=== PATIENT | female | born 1990 | race Caucasian/White ===

== ENCOUNTER 2021-01-09 06:06 | Day surgery (SDC) | payer OTHER, SELFPAY ==
[2021-01-01 09:31] LABS: BASOPHILS % (AUTO) 0.7 % (0.0-2.0); EOSINOPHILS # (AUTO) 0.2 K/uL (0-0.4); EOSINOPHILS % (AUTO) 2.9 % (0.0-4.0); HEMATOCRIT 31.7 % (36-48); HEMOGLOBIN 9.8 g/dL (12.0-16.0); LYMPHOCYTES # (AUTO) 1.7 K/uL (2.5-16.5); LYMPHOCYTES % (AUTO) 30.7 % (20.5-51.1); MEAN CORPUSCULAR HEMOGLOBIN 22 pg (27-31); MEAN CORPUSCULAR HGB CONC 31 g/dL (33-37); MEAN CORPUSCULAR VOLUME 70.3 fL (80-94); MONOCYTES # (AUTO) 0.4 K/uL (0.8-1.0); MONOCYTES % (AUTO) 6.4 % (1.7-9.3); NEUTROPHILS # (AUTO) 3.4 K/uL (1.8-7.7); NEUTROPHILS % (AUTO) 59.3 % (42.2-75.2); PLATELET COUNT (AUTO) 299 K/uL (140-450); RED BLOOD CELL COUNT(AUTO) 4.51 MIL/uL (4.20-5.40); RED CELL DISTRIBUTION WIDTH 18.5 % (11.6-13.7); WHITE BLOOD COUNT (AUTO) 5.7 K/uL (4.8-10.8)
[2021-01-01 09:47] LABS: PROTHROMBIN TIME 9.7 secs (10.8-13.4)
[~2021-01-09] VITALS: Ht 162.6 cm; Wt 99.8 kg
[2021-01-09] MEDS ORDERED: fentaNYL citrate 0.05 MG/ML VIAL ONE (07:37)
[2021-01-09] MEDS ORDERED: MIDAZOLAM 5 MG/5 ML VIAL ONE (07:37)
[2021-01-09] MEDS ORDERED: LIDOCAINE 2% 1000 MG/50 ML VIAL INJ ONE ×2 (07:38→08:10)
[2021-01-09] MEDS ORDERED: fentaNYL citrate 0.05 MG/ML VIAL IVP ONE (08:05)
== END 2021-01-09 10:00 | disposition home or self-care (01) ==
LOC: MDS 06:06 → MLD 06:08 → MFCC 06:25 → MDS 10:00
PROVIDERS: ATTEND Internal Medicine Gastroenterology
DX: R94.5 Abnormal results of liver function studies (principal); E66.9 Obesity, unspecified; Z68.37 Body mass index [BMI] 37.0-37.9, adult; Z20.828 Contact with and (suspected) exposure to other viral communicable diseases; Z79.01 Long term (current) use of anticoagulants; Z79.899 Other long term (current) drug therapy
CPT/HCPCS: 36415; 47000; 76942; 81025; 85025; 85610; 85730; J2001; J3010; U0003; J2250